=== PATIENT | female | born 1960 | race Two or more races ===

== ENCOUNTER 2018-07-17 20:03 | Emergency (ER) | payer SELFPAY ==
--- NOTE | 2018-07-17 20:13 | PDOC ---
History of Present Illness - General History Source: Patient Exam Limitations: No Limitations - History of Present Illness Initial Comments: 07/17/18 20:34 The patient is a 57 year old female with a past medical history of HTN, HLD, thyroid disease, and diabetes here today for evaluation of epigastric pain. The patient reports that her epigastric pain began 2 weeks ago, describes it as a burning sensation, and is intermittent happening 1-2 times a day. She notes associated nausea. Patient denies headache, lightheadedness. Denies fever, chills. Denies chest pain, shortness of breath. Denies vomiting, diarrhea. Allergies: Penicillins Social history: Patient denies tobacco and alcohol use. PCP: Blake Sky <Brain Lee - Last Filed: 07/17/18 20:34> <He Chapman - Last Filed: 07/17/18 23:07> - General Chief Complaint: Pain Stated Complaint: ABD PAIN Time Seen by Provider: 07/17/18 20:05 Past History <Brain Lee - Last Filed: 07/17/18 20:34> - Past Medical History COPD: No Diabetes: Yes HTN: Yes Hypercholesterolemia: Yes Thyroid Disease: Yes - Suicide/Smoking/Psychosocial Hx Smoking History: Never smoked Have you smoked in the past 12 months: No Information on smoking cessation initiated: No Hx Alcohol Use: No <He Chapman - Last Filed: 07/17/18 23:07> - Past Medical History Allergies/Adverse Reactions: Allergies Allergy/AdvReac Type Severity Reaction Status Date / Time Penicillins Allergy Rash Verified 07/17/18 20:04 Home Medications: Ambulatory Orders Enalapril Maleate mg PO DAILY 07/17/18 Levothyroxine [Synthroid -] 175 mcg PO DAILY 07/17/18 Metformin HCl [Glucophage] 250 mg PO DAILY 07/17/18 Phenobarb/Hyoscy/Atropine/Scop [ Tablet] 16.2 mg PO BID #6 tablet Simvastatin 75 mg PO DAILY 07/17/18 Review of Systems - Review of Systems Able to Perform ROS?: Yes Comments:: 07/17/18 20:35 A complete review of 10 out of 10 review of systems is taken and is negative apart from what is previously mentioned below and in the HPI. <Brain Lee - Last Filed: 07/17/18 20:34> *Physical Exam - Vital Signs Last Vital Signs Temp Pulse Resp BP Pulse Ox 98.4 F 114 H 20 128/96 96 07/17/18 20:03 07/17/18 20:03 07/17/18 20:03 07/17/18 20:03 07/17/18 20:03 - Physical Exam Comments: 07/17/18 20:36 Vitals: Triage vital signs reviewed General Appearance: No acute distress, well nourished, well developed Head: Atraumatic Neck: Supple; No nuchal rigidity Chest Wall: Nontender Abdomen: +tenderness over epigastrium. Soft, nondistended, normal bowel sounds, nontender to palpation Rectal: Exam deferred Extremities: Full range of motion to all extremities, no cyanosis, clubbing, or edema Skin: Warm and dry, no rashes or lesions, no rash, no petechiae Neuro: AOX3; Cranial Nerves 2-12 grossly intact, Strength intact to all extremities, Sensation intact to all extremities, gait normal Psych: Normal mood, normal affect <Brain Lee - Last Filed: 07/17/18 20:34> - Vital Signs Last Vital Signs Temp Pulse Resp BP Pulse Ox 98.4 F 114 H 20 128/96 96 07/17/18 20:03 07/17/18 20:03 07/17/18 20:03 07/17/18 20:03 07/17/18 20:03 <He Chapman - Last Filed: 07/17/18 23:07> Moderate Sedation - Procedure Monitoring Vital Signs: Procedure Monitoring Vital Signs Temperature 98.4 F 07/17/18 20:03 Pulse Rate 114 H 07/17/18 20:03 Respiratory Rate 20 07/17/18 20:03 Blood Pressure 128/96 07/17/18 20:03 O2 Sat by Pulse Oximetry (%) 96 07/17/18 20:03 <Brain Lee - Last Filed: 07/17/18 20:34> - Procedure Monitoring Vital Signs: Procedure Monitoring Vital Signs Temperature 98.4 F 07/17/18 20:03 Pulse Rate 114 H 07/17/18 20:03 Respiratory Rate 20 07/17/18 20:03 Blood Pressure 128/96 07/17/18 20:03 O2 Sat by Pulse Oximetry (%) 96 07/17/18 20:03 <AriHe cadena - Last Filed: 07/17/18 23:07> ED Treatment Course - LABORATORY CBC & Chemistry Diagram: 07/17/18 20:37 07/17/18 20:37 <AriHe cadena - Last Filed: 07/17/18 23:07> Medical Decision Making - Medical Decision Making 07/17/18 20:34 The patient is a 57 year old female with a past medical history of HTN, HLD, and diabetes here today for evaluation of epigastric pain. <Brain Lee - Last Filed: 07/17/18 20:34> - Medical Decision Making 07/17/18 23:02 Strict examination is most consistent with reflux gastritis however given age and symptomatology we'll check EKG troponin GI cocktail observe and reassess Ultrasound performed negative for gallstones or acute cholecystitis Laboratory analysis including troponin within normal limits EKG demonstrates normal sinus rhythm with no ST elevations and no T-wave inversions. Status post check cocktail patient feels better. Slightly nauseous Reglan and Benadryl given with improvement of symptomatology Patient will follow up in 1-2 days with her doctor as well as with gastroenterology. Findings, the need for follow-up and strict return instructions discussed with patient. <He Chapman - Last Filed: 07/17/18 23:07> *DC/Admit/Observation/Transfer - Attestations Scribe Attestion: 07/17/18 20:36 Documentation prepared by VASYL Hunter, acting as quality engineer medical device for He Chapman MD. <Brain Lee - Last Filed: 07/17/18 20:34> - Discharge Dispostion Decision to Admit order: No <He Chapman - Last Filed: 07/17/18 23:07> Diagnosis at time of Disposition: Epigastric pain - Discharge Dispostion Disposition: HOME Condition at time of disposition: Stable - Referrals Referrals: Blake Peck [Primary Care Provider] - Francisco Novoa MD [Staff Physician] - - Patient Instructions Printed Discharge Instructions: DI for Epigastric Pain Additional Instructions: Take [id number] Pepcid and Maalox as directed on package. as prescribed. Drink plenty of fluids. Follow-up with her primary care doctor and gastroenterology within 1-2 days. Return to ED for any fever severe uncontrollable symptoms or for any concerns. - Post Discharge Activity
[2018-07-17 20:19] VITALS: TEMP 98.4; BMI 31.8
[2018-07-17] MEDS ORDERED: ACETAMINOPHEN 1000 MG/100 ML VIAL (NON FORMULARY) IVPB ONE (20:19)
[2018-07-17] MEDS ORDERED: MAG HYDROX/AL HYDROX/SIMETH 30 ML UNIT-DOSE CUP PO ONE (20:19)
[2018-07-17] MEDS ORDERED: FAMOTIDINE 20 MG/50 ML IVPB 20 MG/50 ML MG IVPB ONE ×2 (20:19→20:41)
[2018-07-17] MEDS ORDERED: ACETAMINOPHEN INJECTION 100 ML IVPB ONE (20:41)
[2018-07-17] MEDS ORDERED: MAG HYDROX/AL HYDROX/SIMETH 30 ML UNIT-DOSE CUP ONE (20:41)
[2018-07-17 20:51] LABS: BASO % 0.4 % (0-2.0); EOS % 1.4 % (0-4.5); HEMATOCRIT 39.2 % (32.4-45.2); HEMOGLOBIN 12.5 GM/dl (10.7-15.3); LYMPH % 12.8 % (8-40); MEAN CELL VOLUME 90.7 fl (80-96); MEAN PLT VOLUME 7.2 fl (7.5-11.1); MONO % 2.7 % (3.8-10.2); NEUT % 82.7 % (42.8-82.8); PLATELET COUNT 370 K/MM3 (134-434); RBC 4.32 M/mm3 (3.60-5.2); RDW 13.5 % (11.6-15.6); WHITE BLOOD COUNT 10.5 K/mm3 (4.0-10.8)
[2018-07-17 21:27] LABS: GLUCOSE,RANDOM 136 mg/dl (74-106)
[2018-07-17 21:28] LABS: ALBUMIN 4.4 g/dl (3.5-5.0); ALK PHOS 116 U/L (32-92); ANION GAP 12 MMOL/L (8-16); BILIRUBIN,TOTAL 0.5 mg/dl (0.2-1.0); BLOOD UREA NITROGEN 24 mg/dl (7-18); CALCIUM 9.5 mg/dl (8.4-10.2); CHLORIDE 99 mmol/L (98-107); CO2 25 mmol/L (22-28); CREATININE 0.7 mg/dl (0.6-1.3); POTASSIUM 3.6 mmol/L (3.5-5.1); SGOT/AST 32 U/L (10-42); SGPT/ALT 29 U/L (10-40); SODIUM 136 mmol/L (136-145); TOT PROT 7.9 g/dl (6.4-8.3)
[2018-07-17 22:44] LABS: LIPASE 211 U/L (73-393)
[2018-07-17] MEDS ORDERED: METOCLOPRAMIDE HCL INJECTION 10 MG/2 ML VIAL IVPB ONE (22:54)
[2018-07-17] MEDS ORDERED: METOCLOPRAMIDE HCL INJECTION 10 MG/2 ML VIAL ONE (22:56)
[2018-07-17 23:15] VITALS: BP 113/74; PULSE 92
--- NOTE | 2018-07-18 09:44 | EKG ---
Test Reason : Blood Pressure : / mmHG Vent. Rate : 094 BPM Atrial Rate : 094 BPM P-R Int : 162 ms QRS Dur : 098 ms QT Int : 370 ms P-R-T Axes : 044 -27 044 degrees QTc Int : 462 ms NORMAL SINUS RHYTHM NONSPECIFIC T WAVE ABNORMALITY PROLONGED QT ABNORMAL ECG NO PREVIOUS ECGS AVAILABLE Confirmed by JACLYN BINGHAM, DASHAWN ([id number]) on 07/18/2018 9:44:20 AM Referred By: MALIKA Confirmed By:DASHAWN ANAYA MD
== END 2018-07-17 23:35 | disposition home or self-care (01) ==
LOC: FER 20:03
PROC: 3E033GC Introduction of Other Therapeutic Substance into Peripheral Vein, Percutaneous Approach (ICD-10-PCS; principal; 2018-07-17)
PROC: 3E033NZ Introduction of Analgesics, Hypnotics, Sedatives into Peripheral Vein, Percutaneous Approach (ICD-10-PCS; 2018-07-17)
DX: R10.13 Epigastric pain (principal); I10 Essential (primary) hypertension; E78.5 Hyperlipidemia, unspecified; E03.9 Hypothyroidism, unspecified; E11.9 Type 2 diabetes mellitus without complications
CPT/HCPCS: 36415; 76705-TC; 80053; 83690; 84484; 85025; 93005; 99285-25; J0131